=== PATIENT | female | born 1950 | race Hispanic/Latino ===

== ENCOUNTER → 2018-05-02 | Outpatient (CLI) | payer MEDICARE | LOC: MAMMO 09:54 | PROVIDERS: ATTEND Internal Medicine | DX: Z12.31 Encounter for screening mammogram for malignant neoplasm of breast (principal) | CPT/HCPCS: 77067 ==

== ENCOUNTER → 2020-07-17 | Outpatient (CLI) | payer MEDICARE ==
--- NOTE | 2020-07-17 16:33 | Diagnostic Imaging Report ---
EXAM: US ABDOMEN COMPLETE DATE: 07/17/2020 10:36 AM INDICATION: ^UPPER ABD PAIN COMPARISON: None TECHNIQUE: Transverse and longitudinal orantes scale and color doppler sonographic images of the abdomen were obtained. FINDINGS: LIVER 15.2 cm in the right midclavicular line. Liver is diffusely echogenic with normal contour, no masses. SPLEEN 7.3 cm in maximum diameter. Normal echogenicity, no masses. GALLBLADDER No gallbladder wall thickening, distension, stone, or pericholecystic fluid. Negative reported sonographic Wilks's sign. BILE DUCTS No intra nor extra-hepatic biliary dilation. Common bile duct measures 0.4cm PANCREAS: Visualized portions are normal. RIGHT KIDNEY: 11.1 cm Echogenicity: Normal Collecting System: No hydronephrosis Stones: None Cyst/Mass: None LEFT KIDNEY: 10.6 cm Echogenicity: Normal Collecting System: No hydronephrosis Stones: None Cyst/Mass: None VESSELS: Aorta: Visualized portions are within normal size limits Inferior Vena Cava: Visualized portions are normal Main Portal Vein: 0.8 cm, normal size with hepatopetal flow. FREE FLUID: None IMPRESSION: Hepatic steatosis. Negative for biliary dilatation or cholelithiasis. Unremarkable ultrasound of the kidneys. Signed by: Alexandre Marte MD on 07/17/2020 4:29 PM
== END ==
LOC: US 10:19
PROVIDERS: ATTEND Internal Medicine
DX: R10.10 Upper abdominal pain, unspecified (principal)
CPT/HCPCS: 76700

== ENCOUNTER → 2021-01-29 | Outpatient (CLI) | payer MEDICARE | LOC: DX 11:41 | PROVIDERS: ATTEND Internal Medicine | DX: Z12.31 Encounter for screening mammogram for malignant neoplasm of breast (principal); M81.8 Other osteoporosis without current pathological fracture | CPT/HCPCS: 77067; 77080 ==

== ENCOUNTER → 2021-02-26 | Outpatient (CLI) | payer MEDICARE | LOC: US 10:43 | PROVIDERS: ATTEND Internal Medicine | DX: R92.2 Inconclusive mammogram (principal) ==

== ENCOUNTER → 2021-08-11 | Day surgery (SDC) | payer MEDICARE, OTHER ==
[~2021-08-11] MED LIST: FENTANYL CITRATE/PF 100MCG/2 ML INJ ONE; FLONASE ALLERG9.9 ML INH; GLIPIZIDE5 MG PO; METFORMIN HCL500 MG PO; MIDAZOLAM HCL 2 MG/2 ML VIAL ONE; OR PHACO EYE KIT ONE; PREOP PHACO EYE KIT ONE
[2021-08-11 14:00] VITALS: BP 129/75
== END | disposition home or self-care (01) ==
LOC: OR 11:45
PROVIDERS: ATTEND Ophthalmology
DX: H25.12 Age-related nuclear cataract, left eye (principal); E11.9 Type 2 diabetes mellitus without complications; D64.9 Anemia, unspecified; J30.2 Other seasonal allergic rhinitis; Z88.8 Allergy status to other drugs, medicaments and biological substances; Z01.810 Encounter for preprocedural cardiovascular examination; Z01.812 Encounter for preprocedural laboratory examination; Z20.822 Contact with and (suspected) exposure to COVID-19; Z79.84 Long term (current) use of oral hypoglycemic drugs
CPT/HCPCS: 36415; 82948; 93005; J2250; J3010; U0002

== ENCOUNTER → 2021-08-20 | Day surgery (SDC) | payer MEDICARE, OTHER ==
[2021-08-17 14:37] LABS: BASOPHILS # (AUTO) 0.1 (0.0-0.1); BASOPHILS % 0.7 % (0.0-1.0); EOSINOPHILS # (AUTO) 0.1 (0.0-0.4); EOSINOPHILS % 1.1 % (0.0-6.0); HEMATOCRIT 39.3 % (34.2-44.1); HEMOGLOBIN 12.6 g/dL (12.0-16.0); LYMPHOCYTES # (AUTO) 2.7 (1.0-3.2); LYMPHOCYTES % 35.8 % (18.0-39.1); MEAN CORPUSCULAR HEMOGLOBIN 29.1 pg (28-32); MEAN CORPUSCULAR HGB CONC 32.1 g/dL (31-35); MEAN CORPUSCULAR VOLUME 90.8 fL (81-99); MONOCYTES # (AUTO) 0.5 (0.2-0.8); NEUTROPHILS # (AUTO) 4.1 (2.1-6.9); NEUTROPHILS % 55.3 % (38.7-80.0); PLATELET COUNT 278 x10e3/uL (140-360); RED BLOOD COUNT 4.33 x10e6/uL (3.6-5.1); RED CELL DISTRIBUTION WIDTH 13.3 % (11.7-14.4)
[~2021-08-20] MED LIST changes: -FENTANYL CITRATE/PF 100MCG/2 ML INJ ONE; +LIDOCAINE HCL 2% LOCAL INJ 5 ML SDV VIAL INJ ONE; -MIDAZOLAM HCL 2 MG/2 ML VIAL ONE; -OR PHACO EYE KIT ONE; -PREOP PHACO EYE KIT ONE; +PROPOFOL IV EMULSION 10 MG/ML 20 ML VIAL ONE
[2021-08-20 09:15] VITALS: BP 126/64
== END | disposition home or self-care (01) ==
LOC: OR 06:27
PROVIDERS: ATTEND Internal Medicine Gastroenterology
DX: Z12.11 Encounter for screening for malignant neoplasm of colon (principal); K64.8 Other hemorrhoids; Z71.3 Dietary counseling and surveillance; E66.9 Obesity, unspecified; R06.83 Snoring; E11.9 Type 2 diabetes mellitus without complications; Z88.8 Allergy status to other drugs, medicaments and biological substances; Z01.812 Encounter for preprocedural laboratory examination; Z20.822 Contact with and (suspected) exposure to COVID-19; Z79.84 Long term (current) use of oral hypoglycemic drugs; Z68.31 Body mass index [BMI] 31.0-31.9, adult
CPT/HCPCS: 36415; 45378; 82948; 85025; J2001; U0002

== ENCOUNTER → 2021-08-25 | Day surgery (SDC) | payer MEDICARE, OTHER ==
[~2021-08-25] MED LIST changes: -LIDOCAINE HCL 2% LOCAL INJ 5 ML SDV VIAL INJ ONE; +OR PHACO EYE KIT ONE; +PREOP PHACO EYE KIT ONE; -PROPOFOL IV EMULSION 10 MG/ML 20 ML VIAL ONE
[2021-08-25 11:45] VITALS: BP 121/62
== END | disposition home or self-care (01) ==
LOC: OR 08:16
PROVIDERS: ATTEND Ophthalmology
DX: H25.11 Age-related nuclear cataract, right eye (principal); E11.9 Type 2 diabetes mellitus without complications; E78.00 Pure hypercholesterolemia, unspecified; M79.672 Pain in left foot; Z88.8 Allergy status to other drugs, medicaments and biological substances; Z01.812 Encounter for preprocedural laboratory examination; Z20.822 Contact with and (suspected) exposure to COVID-19; Z79.84 Long term (current) use of oral hypoglycemic drugs; Z68.32 Body mass index [BMI] 32.0-32.9, adult
CPT/HCPCS: 36415; 82948; U0002; V2632

== ENCOUNTER → 2022-05-03 | Outpatient (CLI) | payer OTHER ==
[~2022-05-03] MED LIST changes: -OR PHACO EYE KIT ONE; -PREOP PHACO EYE KIT ONE
== END ==
LOC: MAMMO 08:20
PROVIDERS: ATTEND Internal Medicine
DX: Z12.31 Encounter for screening mammogram for malignant neoplasm of breast (principal)
CPT/HCPCS: 77067

== ENCOUNTER → 2023-02-23 | Outpatient (CLI) | payer OTHER | LOC: DX 12:45 | PROVIDERS: ATTEND Internal Medicine | DX: M85.88 Other specified disorders of bone density and structure, other site (principal); Z78.0 Asymptomatic menopausal state | CPT/HCPCS: 77080 ==

== ENCOUNTER → 2024-05-14 | Outpatient (REF) | payer OTHER | LOC: MAMMO 08:21 | PROVIDERS: ATTEND Family Medicine | DX: Z12.31 Encounter for screening mammogram for malignant neoplasm of breast (principal); M85.88 Other specified disorders of bone density and structure, other site; Z78.0 Asymptomatic menopausal state | CPT/HCPCS: 77067; 77080 ==

== ENCOUNTER → 2025-05-06 | Outpatient (REF) | payer MEDICARE | LOC: MAMMO 14:23 | PROVIDERS: ATTEND Specialist/Technologist, Other Surgical Technologist | DX: Z12.31 Encounter for screening mammogram for malignant neoplasm of breast (principal); M81.0 Age-related osteoporosis without current pathological fracture | CPT/HCPCS: 77067; 77080 ==